=== PATIENT | female | born 1990 | race Hispanic/Latino ===

== ENCOUNTER 2021-01-14 10:40 | Inpatient (IN) | payer BC ==
[~2021-01-14] VITALS: Ht 162.6 cm; Wt 100.7 kg
--- NOTE | 2021-01-17 09:00 | NUR ---
01/17/21 0900 Mariama Grant 0840 PT ARRIVED IN PACU WIDE AWAKE WITH NO C/O'S. AND BABY AT BEDSIDE. 0855 MOM HOLDING BABY SKIN TO SKIN.
--- NOTE | 2021-01-18 08:01 | PR ---
[facility] [address] [facility] [place], [place] [address] Signed PP Progress Notes Datetime Report Generated by CPN: 01/18/2021 08:01 SUBJECTIVE: [id number] Pain: Within Normal Limits Nausea/Vomiting: Denies Flatus: Yes Vital Signs: [id number] Vital Signs: Reviewed; Within Normal Limits Cardiovascular: Normal Respiratory: Normal Abdomen/Uterus: Abnormal Lochia: Normal Vulva/Perineum: Not Done Breasts: Not Done CVA Tenderness: Not Done Extremities: Normal Incision: Normal Progress: Abnormal Exam Comments: Abdomen with active BS. Fundus firm, NT @ U-2. H/H 10.1/30.0, WBC 9.3, plat 178k IMPRESSION/PLAN/PROCEDURES: [id number] Impression: Normal Progression; Difficulties Plan: Consult Other Plans: ambulate, shower Progress Notes: Doing well overall. Signing Physician: Jamee Caruso MD Copies: ~ *Electronically Signed* 01/18/21800 JAMEE CARUSO MD PATIENT NAME: JUNIOR CUENCA PROGRESS NOTE DATE OF : 86 PHYSICIAN: JAMEE CARUSO MD RPT #: [id number] REPORT IS CONFIDENTIAL AND NOT TO BE RELEASED WITHOUT AUTHORIZATION
--- NOTE | 2021-01-18 17:39 | OR ---
[facility] [address] [place], [place] [address] Signed DATE OF OPERATION: 01/17/2021 SURGEON: Jamee Caruso MD STENOGRAPHER SECRETARY: Bassem Bentley DO. PREOPERATIVE DIAGNOSIS: Term , previous section. POSTOPERATIVE DIAGNOSIS: Term , previous section, delivered. PROCEDURE: Repeat section with low segment transverse uterine incision. ANESTHESIA: Spinal. ESTIMATED BLOOD LOSS: 700 mL. DRAINS: Calero catheter. INDICATIONS AND FINDINGS: The patient is a 30-year-old female, 3, para 1, SAB 1, admitted at 39 weeks for repeat section. Her previous had a failed second stage. She was delivered of a little boy from the LOT position via lower segment transverse uterine incision with Apgars of 9 and 9 and weight of 6 pounds 9 ounces. There was a nuchal cord x2. The uterus, tubes, ovaries, and placenta appeared normal. DESCRIPTION OF PROCEDURE: The patient was prepped and draped in the supine position. A repeat Pfannenstiel skin incision was made and carried down through the fascia. The incision was extended laterally. The inferior and superior fascial flaps were then created. There was quite a bit of scarring in these areas. The muscles were sharply divided. Following this, the peritoneum was opened bluntly and the incision extended superiorly and inferiorly. The Jean retractor was then placed. The uterine incision was made at the upper aspect of the peritoneal reflection. The Electronically Signed By: JAMEE CARUSO MD 01/18/21 1739 PATIENT NAME: JUNIOR CUENCA OPERATIVE REPORT DATE OF : 86 REPORT #: [id number] PHYSICIAN: JAMEE CARUSO MD PCP: JAMEE CARUSO MD REPORT IS CONFIDENTIAL AND NOT TO BE RELEASED WITHOUT AUTHORIZATION [facility] [address] [place] [id number] Signed baby was delivered with the above findings and handed off to the pediatric staff in attendance. The placenta was removed manually. The uterus was explored with a lap tape assuring no remaining fragments. The edges of the incision were grasped with T-clamps. There was bleeding from the right angle and a tijcgw-ev-wygee suture was placed to control this bleeding. The 0 Monocryl was then used to close the uterine incision with initially a running locking stitch followed by a vertical imbricating stitch. An additional uteglb-tx-gzvep was required near the right side for control of bleeding. The abdomen was then copiously irrigated and inspected and bleeding points were controlled with cautery. The bladder flap area was very raw. The left hand edge was reapproximated to the uterine incision. A horizontal suture was placed in the lower aspect of this bladder flap area to close some of that gap as well. The retractor was then removed and the peritoneum identified. Sage was placed over the bladder flap area and the uterine incision to aid in hemostasis. ACell graft was then laid over the lower segment to aid in healing as well. The peritoneum was then closed with a running suture of 3-0 Vicryl. The muscles were brought together with interrupted sutures of 0 Vicryl. Bleeding points were controlled with cautery at the inferior fascial flap area. A fpscnq-ct-wufah suture was required at the upper fascial flap at the junction because of bleeding from perforators. This layer was then irrigated, inspected and appeared hemostatic. Sage powder was sprinkled over the muscles to aid in hemostasis. ACell powder was sprinkled over the muscles to aid in healing. The fascia was then closed from each angle to the midline with a running suture of 0 Vicryl. The subcu was irrigated and bleeding points controlled with cautery. The deep space was closed with interrupted sutures of 3-0 Vicryl. The skin was closed with zafar. All sponge and needle counts were correct. She tolerated procedure well and was taken to the recovery room in good condition. Jamee Caruso MD PJW/MODL /[id number] cc: Bassem Bentley DO Copies: BASSEM BENTLEY DO Electronically Signed By: JAMEE CARUSO MD 01/18/21 1739 PATIENT NAME: JUNIOR CUENCA OPERATIVE REPORT DATE OF : 86 REPORT #: [id number] PHYSICIAN: JAMEE CARUSO MD PCP: JAMEE CARUSO MD REPORT IS CONFIDENTIAL AND NOT TO BE RELEASED WITHOUT AUTHORIZATION [address] [address] Signed ~ Electronically Signed By: JAMEE CARUSO MD 01/18/21 1739 PATIENT NAME: JOSE SANTACRUZJUNIOR TORRES OPERATIVE REPORT DATE OF : 86 REPORT #: [id number] PHYSICIAN: JAMEE CARUSO MD PCP: JAMEE CARUSO MD REPORT IS CONFIDENTIAL AND NOT TO BE RELEASED WITHOUT AUTHORIZATION
--- NOTE | 2021-01-19 08:45 | PR ---
[facility] [address] [facility] [place], [place] [address] Signed PP Progress Notes Datetime Report Generated by CPN: 01/19/2021 08:45 SUBJECTIVE: [id number] Pain: Within Normal Limits Nausea/Vomiting: Denies Flatus: Yes Vital Signs: [id number] Vital Signs: Reviewed; Within Normal Limits Cardiovascular: Not Done Respiratory: Not Done Abdomen/Uterus: Abnormal Lochia: Normal Vulva/Perineum: Not Done Breasts: Not Done CVA Tenderness: Not Done Extremities: Normal Incision: Normal Progress: Abnormal Exam Comments: Abdomen with active BS. Fundus firm, NT @ U-2. IMPRESSION/PLAN/PROCEDURES: [id number] Impression: Normal Progression; Difficulties Plan: Remove [place]; Discharge Other Plans: ambulate, shower Procedures: None Progress Notes: Doing well though not really breast feeding at this time. She would like discharge. Signing Physician: Jamee Caruso MD Copies: ~ *Electronically Signed* 01/19/21 0845 JAMEE CARUSO MD PATIENT NAME: JUNIOR CUENCA PROGRESS NOTE DATE OF : 86 PHYSICIAN: JAMEE CARUSO MD RPT #: [id number] REPORT IS CONFIDENTIAL AND NOT TO BE RELEASED WITHOUT AUTHORIZATION
== END 2021-01-19 12:50 | disposition home or self-care (01) | DRG 788 ==
LOC: FBC 01-17 05:06
PROVIDERS: ADMIT Obstetrics & Gynecology; ATTEND Obstetrics & Gynecology
PROC: 10D00Z1 Extraction of Products of Conception, Low, Open Approach (ICD-10-PCS; principal; 2021-01-17 06:45)
DX: O34.211 Maternal care for low transverse scar from previous cesarean delivery (principal); N85.8 Other specified noninflammatory disorders of uterus; Z37.0 Single live birth; Z3A.39 39 weeks gestation of pregnancy; O32.2XX0 Maternal care for transverse and oblique lie, not applicable or unspecified; O99.214 Obesity complicating childbirth; E66.9 Obesity, unspecified; O99.824 Streptococcus B carrier state complicating childbirth; O69.81X0 Labor and delivery complicated by cord around neck, without compression, not applicable or unspecified
CPT/HCPCS: 01961; 36415; 85027; A9270; J0690; J1170; J1885; J2001; J2274; J2405; J2590; J7040; J7121